=== PATIENT | female | born 1935 | race Native Hawaiian/Other Pacific Islander ===

== ENCOUNTER 2016-01-06 09:00 | Inpatient (IN) | payer OTHER | END 2016-02-06 08:00 | disposition still patient (30) | LOC: PAVB 09:00 | PROVIDERS: ADMIT Internal Medicine | DX: Z51.89 Encounter for other specified aftercare (principal) ==

== ENCOUNTER 2016-02-06 09:00 | Inpatient (IN) | payer OTHER | END 2016-03-08 10:53 | disposition still patient (30) | LOC: PAVB 09:00 | PROVIDERS: ADMIT Internal Medicine | DX: Z51.89 Encounter for other specified aftercare (principal) ==

== ENCOUNTER 2016-02-07 07:30 | Outpatient (CLI) | payer OTHER ==
[2016-02-07 08:08] LABS: PLATELET COUNT 127 K/uL (152-353)
[2016-02-07 08:37] LABS: POTASSIUM 4.3 mmol/L (3.6-5.2)
== END 2016-02-07 19:19 | disposition home or self-care (01) ==
LOC: LAB 07:30
PROVIDERS: Internal Medicine
DX: I10 Essential (primary) hypertension (principal); E11.9 Type 2 diabetes mellitus without complications
CPT/HCPCS: 36415; 80053; 83036; 85027

== ENCOUNTER 2016-03-08 11:40 | Inpatient (IN) | payer OTHER | END 2016-04-05 12:33 | disposition still patient (30) | LOC: PAVB 11:40 | PROVIDERS: ADMIT Internal Medicine | DX: Z51.89 Encounter for other specified aftercare (principal) ==

== ENCOUNTER 2016-04-05 12:43 | Inpatient (IN) | payer OTHER | END 2016-05-06 08:09 | disposition still patient (30) | LOC: PAVB 12:43 | PROVIDERS: ADMIT Internal Medicine | DX: Z51.89 Encounter for other specified aftercare (principal) ==

== ENCOUNTER 2016-05-06 09:04 | Inpatient (IN) | payer OTHER | END 2016-06-05 08:29 | disposition still patient (30) | LOC: PAVB 09:04 → PAVA 05-22 14:54 | PROVIDERS: ADMIT Internal Medicine | DX: Z51.89 Encounter for other specified aftercare (principal) ==

== ENCOUNTER 2016-05-09 05:35 | Outpatient (CLI) | payer OTHER | END 2016-05-09 06:35 | disposition home or self-care (01) | LOC: LAB 05:35 | DX: E11.9 Type 2 diabetes mellitus without complications (principal) | CPT/HCPCS: 83036 ==

== ENCOUNTER 2016-05-10 10:07 | Outpatient (CLI) | payer OTHER | END 2016-05-10 11:07 | disposition home or self-care (01) | LOC: RAD 10:07 | DX: M81.0 Age-related osteoporosis without current pathological fracture (principal) ==

== ENCOUNTER 2016-06-03 01:26 | Outpatient (CLI) | payer OTHER | END 2016-06-03 19:07 | disposition home or self-care (01) | LOC: LAB 01:26 | DX: Z16.24 Resistance to multiple antibiotics (principal) | CPT/HCPCS: 87081 ==

== ENCOUNTER 2016-06-05 08:45 | Inpatient (IN) | payer OTHER | END 2016-07-06 08:10 | disposition still patient (30) | LOC: PAVA 08:45 | PROVIDERS: ADMIT Internal Medicine | DX: Z51.89 Encounter for other specified aftercare (principal) ==

== ENCOUNTER 2016-07-06 08:22 | Inpatient (IN) | payer OTHER | END 2016-08-05 14:56 | disposition still patient (30) | LOC: PAVA 08:22 | PROVIDERS: ADMIT Internal Medicine | DX: Z51.89 Encounter for other specified aftercare (principal) ==

== ENCOUNTER 2016-08-05 15:06 | Inpatient (IN) | payer OTHER | END 2016-09-05 08:29 | disposition still patient (30) | LOC: PAVA 15:06 | PROVIDERS: ADMIT Internal Medicine | DX: Z51.89 Encounter for other specified aftercare (principal) ==

== ENCOUNTER 2016-08-07 06:35 | Outpatient (CLI) | payer OTHER ==
[2016-08-07 07:15] LABS: PLATELET COUNT 122 K/uL (152-353)
[2016-08-07 08:23] LABS: POTASSIUM 3.9 mmol/L (3.6-5.2)
== END 2016-08-07 07:40 | disposition home or self-care (01) ==
LOC: LAB 06:35
PROVIDERS: Internal Medicine
DX: E11.9 Type 2 diabetes mellitus without complications (principal); I10 Essential (primary) hypertension; E11.21 Type 2 diabetes mellitus with diabetic nephropathy
CPT/HCPCS: 80053; 83036; 85027

== ENCOUNTER 2016-09-05 09:07 | Inpatient (IN) | payer OTHER | END 2016-10-06 08:10 | disposition still patient (30) | LOC: PAVA 09:07 | PROVIDERS: ADMIT Internal Medicine | DX: Z51.89 Encounter for other specified aftercare (principal) ==

== ENCOUNTER 2016-10-06 08:25 | Inpatient (IN) | payer OTHER | END 2016-11-05 09:08 | disposition still patient (30) | LOC: PAVA 08:25 | PROVIDERS: ADMIT Internal Medicine | DX: Z51.89 Encounter for other specified aftercare (principal) ==

== ENCOUNTER 2016-11-05 09:20 | Inpatient (IN) | payer OTHER | END 2016-12-06 10:24 | disposition still patient (30) | LOC: PAVA 09:20 | PROVIDERS: ADMIT Internal Medicine ==

== ENCOUNTER 2016-11-06 11:44 | Outpatient (CLI) | payer OTHER | END 2016-11-06 12:45 | disposition home or self-care (01) | LOC: LAB 11:44 | DX: E11.9 Type 2 diabetes mellitus without complications (principal) | CPT/HCPCS: 83036 ==

== ENCOUNTER 2016-12-06 12:20 | Inpatient (IN) | payer OTHER | END 2017-01-05 08:12 | disposition still patient (30) | LOC: PAVA 12:20 | PROVIDERS: ADMIT Internal Medicine ==

== ENCOUNTER 2017-01-05 08:48 | Inpatient (IN) | payer OTHER | END 2017-02-05 08:27 | disposition still patient (30) | LOC: PAVA 08:48 | PROVIDERS: ADMIT Internal Medicine ==

== ENCOUNTER 2017-02-05 08:48 | Inpatient (IN) | payer OTHER | END 2017-03-08 08:30 | disposition still patient (30) | LOC: PAVA 08:48 | PROVIDERS: ADMIT Internal Medicine ==

== ENCOUNTER 2017-02-07 06:17 | Outpatient (CLI) | payer OTHER ==
[2017-02-07 08:29] LABS: POTASSIUM 4.3 mmol/L (3.6-5.2)
[2017-02-07 13:44] LABS: PLATELET COUNT 139 K/uL (152-353)
== END 2017-02-07 21:33 | disposition home or self-care (01) ==
LOC: LAB 06:17
PROVIDERS: Internal Medicine
DX: R73.09 Other abnormal glucose (principal)
CPT/HCPCS: 80053; 83036; 85027

== ENCOUNTER 2017-03-08 09:24 | Inpatient (IN) | payer OTHER | END 2017-04-05 08:07 | disposition still patient (30) | LOC: PAVA 09:24 | PROVIDERS: ADMIT Internal Medicine ==

== ENCOUNTER 2017-04-05 08:44 | Inpatient (IN) | payer OTHER | END 2017-05-06 08:00 | disposition still patient (30) | LOC: PAVA 08:44 | PROVIDERS: ADMIT Internal Medicine ==

== ENCOUNTER 2017-05-06 09:00 | Inpatient (IN) | payer OTHER | END 2017-06-05 08:10 | disposition still patient (30) | LOC: PAVA 09:00 | PROVIDERS: ADMIT Internal Medicine ==

== ENCOUNTER 2017-06-05 08:41 | Inpatient (IN) | payer OTHER | END 2017-07-06 08:20 | disposition still patient (30) | LOC: PAVA 08:41 | PROVIDERS: ADMIT Internal Medicine ==

== ENCOUNTER 2017-07-06 08:33 | Inpatient (IN) | payer OTHER | END 2017-08-05 14:14 | disposition still patient (30) | LOC: PAVA 08:33 | PROVIDERS: ADMIT Internal Medicine ==

== ENCOUNTER 2017-08-05 14:28 | Inpatient (IN) | payer OTHER | END 2017-09-05 08:00 | disposition still patient (30) | LOC: PAVA 14:28 | PROVIDERS: ADMIT Internal Medicine ==

== ENCOUNTER 2017-08-08 05:50 | Outpatient (CLI) | payer OTHER ==
[2017-08-08 06:29] LABS: PLATELET COUNT 137 K/uL (152-353)
[2017-08-08 07:10] LABS: POTASSIUM 4.1 mmol/L (3.6-5.2)
== END 2017-08-08 22:06 | disposition home or self-care (01) ==
LOC: LAB 05:50
PROVIDERS: Internal Medicine
DX: I10 Essential (primary) hypertension (principal); E11.9 Type 2 diabetes mellitus without complications
CPT/HCPCS: 80053; 83036; 85027

== ENCOUNTER 2017-09-05 09:00 | Inpatient (IN) | payer OTHER | END 2017-10-06 09:56 | disposition still patient (30) | LOC: PAVA 09:00 | PROVIDERS: ADMIT Internal Medicine ==

== ENCOUNTER 2017-10-06 10:06 | Inpatient (IN) | payer OTHER | END 2017-11-05 08:39 | disposition still patient (30) | LOC: PAVA 10:06 | PROVIDERS: ADMIT Internal Medicine ==

== ENCOUNTER 2017-11-05 06:36 | Outpatient (CLI) | payer OTHER | END 2017-11-05 19:50 | disposition home or self-care (01) | LOC: LAB 06:36 | DX: E11.9 Type 2 diabetes mellitus without complications (principal) | CPT/HCPCS: 83036 ==

== ENCOUNTER 2017-11-05 08:52 | Inpatient (IN) | payer OTHER | END 2017-12-06 08:10 | disposition still patient (30) | LOC: PAVA 08:52 | PROVIDERS: ADMIT Internal Medicine ==

== ENCOUNTER 2017-11-30 18:30 | Outpatient (CLI) | payer OTHER | END 2017-11-30 19:35 | disposition home or self-care (01) | LOC: LAB 18:30 | DX: G31.84 Mild cognitive impairment of uncertain or unknown etiology (principal) | CPT/HCPCS: 81000 ==

== ENCOUNTER 2017-12-03 17:56 | Outpatient (CLI) | payer OTHER | END 2017-12-03 20:06 | disposition home or self-care (01) | LOC: RAD 17:56 | DX: M54.5 Low back pain (principal) ==

== ENCOUNTER 2017-12-06 08:22 | Inpatient (IN) | payer OTHER | END 2018-01-05 08:04 | disposition still patient (30) | LOC: PAVA 08:22 | PROVIDERS: ADMIT Internal Medicine ==

== ENCOUNTER 2017-12-11 14:21 | Outpatient (CLI) | payer OTHER | END 2017-12-11 22:21 | disposition home or self-care (01) | LOC: RAD 14:21 | DX: M79.661 Pain in right lower leg (principal) ==

== ENCOUNTER 2018-01-05 08:15 | Inpatient (IN) | payer OTHER | END 2018-02-05 10:20 | disposition still patient (30) | LOC: PAVA 08:15 | PROVIDERS: ADMIT Internal Medicine ==

== ENCOUNTER 2018-02-05 10:34 | Inpatient (IN) | payer OTHER | END 2018-03-08 14:15 | disposition still patient (30) | LOC: PAVA 10:34 | PROVIDERS: ADMIT Internal Medicine ==

== ENCOUNTER 2018-02-11 06:37 | Outpatient (CLI) | payer OTHER ==
[2018-02-11 08:37] LABS: PLATELET COUNT 148 K/uL (152-353)
[2018-02-11 08:49] LABS: POTASSIUM 3.8 mmol/L (3.6-5.2)
== END 2018-02-11 20:19 | disposition home or self-care (01) ==
LOC: LAB 06:37
PROVIDERS: Internal Medicine
DX: E11.40 Type 2 diabetes mellitus with diabetic neuropathy, unspecified (principal); I10 Essential (primary) hypertension
CPT/HCPCS: 80053; 83036; 85027

== ENCOUNTER 2018-02-26 09:19 | Outpatient (CLI) | payer OTHER | END 2018-02-26 21:02 | disposition home or self-care (01) | LOC: RAD 09:19 | DX: R10.9 Unspecified abdominal pain (principal); R14.0 Abdominal distension (gaseous) ==

== ENCOUNTER 2018-03-08 14:32 | Inpatient (IN) | payer OTHER | END 2018-04-05 09:13 | disposition still patient (30) | LOC: PAVA 14:32 | PROVIDERS: ADMIT Internal Medicine ==

== ENCOUNTER 2018-04-05 09:41 | Inpatient (IN) | payer OTHER | END 2018-05-06 07:54 | disposition still patient (30) | LOC: PAVA 09:41 | PROVIDERS: ADMIT Internal Medicine ==

== ENCOUNTER 2018-05-06 08:27 | Inpatient (IN) | payer OTHER | END 2018-06-05 09:38 | disposition still patient (30) | LOC: PAVA 08:27 | PROVIDERS: ADMIT Internal Medicine ==

== ENCOUNTER 2018-05-08 15:56 | Outpatient (CLI) | payer OTHER | END 2018-05-08 20:09 | disposition home or self-care (01) | LOC: LAB 15:56 | DX: R53.83 Other fatigue (principal) | CPT/HCPCS: 36415; 84443 ==

== ENCOUNTER 2018-05-09 05:31 | Outpatient (CLI) | payer OTHER | END 2018-05-09 19:09 | disposition home or self-care (01) | LOC: LAB 05:31 | DX: E11.9 Type 2 diabetes mellitus without complications (principal); I10 Essential (primary) hypertension; M19.91 Primary osteoarthritis, unspecified site; R53.83 Other fatigue | CPT/HCPCS: 83036 ==

== ENCOUNTER 2018-06-05 10:36 | Inpatient (IN) | payer OTHER | END 2018-07-06 08:12 | disposition still patient (30) | LOC: PAVA 10:36 | PROVIDERS: ADMIT Internal Medicine | DX: Z51.89 Encounter for other specified aftercare (principal) ==

== ENCOUNTER 2018-07-06 08:22 | Inpatient (IN) | payer OTHER | END 2018-08-05 08:26 | disposition still patient (30) | LOC: PAVA 08:22 | PROVIDERS: ADMIT Internal Medicine ==

== ENCOUNTER 2018-08-05 03:48 | Outpatient (CLI) | payer OTHER ==
[2018-08-05 05:34] LABS: PLATELET COUNT 130 K/uL (152-353)
[2018-08-05 06:30] LABS: POTASSIUM 3.5 mmol/L (3.6-5.2)
== END 2018-08-05 23:31 | disposition home or self-care (01) ==
LOC: LAB 03:48
PROVIDERS: Internal Medicine
DX: I10 Essential (primary) hypertension (principal); E11.9 Type 2 diabetes mellitus without complications
CPT/HCPCS: 36415; 80053; 83036; 85027

== ENCOUNTER 2018-08-05 08:53 | Inpatient (IN) | payer OTHER | END 2018-09-05 09:06 | disposition still patient (30) | LOC: PAVA 08:53 | PROVIDERS: ADMIT Internal Medicine ==

== ENCOUNTER 2018-09-05 09:43 | Inpatient (IN) | payer OTHER | END 2018-10-06 15:57 | disposition still patient (30) | LOC: PAVA 09:43 | PROVIDERS: ADMIT Internal Medicine ==

== ENCOUNTER 2018-10-06 16:16 | Inpatient (IN) | payer OTHER | END 2018-11-05 08:04 | disposition still patient (30) | LOC: PAVA 16:16 | PROVIDERS: ADMIT Internal Medicine ==

== ENCOUNTER 2018-11-05 08:44 | Inpatient (IN) | payer OTHER | END 2018-12-06 08:51 | disposition still patient (30) | LOC: PAVA 08:44 | PROVIDERS: ADMIT Internal Medicine ==

== ENCOUNTER 2018-11-06 06:12 | Outpatient (CLI) | payer OTHER | END 2018-11-06 23:47 | disposition home or self-care (01) | LOC: LAB 06:12 | DX: E11.9 Type 2 diabetes mellitus without complications (principal) | CPT/HCPCS: 83036 ==

== ENCOUNTER 2018-12-06 10:50 | Inpatient (IN) | payer OTHER | END 2019-01-05 08:00 | disposition still patient (30) | LOC: PAVA 10:50 | PROVIDERS: ADMIT Internal Medicine ==

== ENCOUNTER 2019-01-05 08:30 | Inpatient (IN) | payer OTHER | END 2019-02-05 07:59 | disposition still patient (30) | LOC: PAVA 08:30 | PROVIDERS: ADMIT Internal Medicine ==

== ENCOUNTER 2019-02-05 08:12 | Inpatient (IN) | payer OTHER | END 2019-03-08 09:30 | disposition still patient (30) | LOC: PAVA 08:12 | PROVIDERS: ADMIT Internal Medicine ==

== ENCOUNTER 2019-02-07 03:14 | Outpatient (CLI) | payer OTHER ==
[2019-02-07 04:23] LABS: PLATELET COUNT 140 K/uL (152-353)
[2019-02-07 04:51] LABS: POTASSIUM 3.8 mmol/L (3.6-5.2)
== END 2019-02-07 19:03 | disposition home or self-care (01) ==
LOC: LAB 03:14
PROVIDERS: Internal Medicine
DX: I10 Essential (primary) hypertension (principal); E11.9 Type 2 diabetes mellitus without complications
CPT/HCPCS: 80053; 83036; 85027

== ENCOUNTER 2019-03-08 09:41 | Inpatient (IN) | payer OTHER | END 2019-04-06 12:44 | disposition still patient (30) | LOC: PAVA 09:41 | PROVIDERS: ADMIT Internal Medicine ==

== ENCOUNTER 2019-03-25 13:34 | Outpatient (CLI) | payer OTHER | END 2019-03-25 22:01 | disposition home or self-care (01) | LOC: LAB 13:34 | DX: N39.0 Urinary tract infection, site not specified (principal) | CPT/HCPCS: 81000; 87077; 87086; 87088; 87186 ==

== ENCOUNTER 2019-04-06 12:56 | Inpatient (IN) | payer OTHER | END 2019-05-07 08:57 | disposition still patient (30) | LOC: PAVA 12:56 | PROVIDERS: ADMIT Internal Medicine ==

== ENCOUNTER 2019-05-07 09:17 | Inpatient (IN) | payer OTHER | END 2019-06-06 08:02 | disposition still patient (30) | LOC: PAVA 09:17 | PROVIDERS: ADMIT Internal Medicine ==

== ENCOUNTER 2019-05-09 06:38 | Outpatient (CLI) | payer OTHER | END 2019-05-09 23:30 | disposition home or self-care (01) | LOC: LAB 06:38 | DX: E11.40 Type 2 diabetes mellitus with diabetic neuropathy, unspecified (principal) | CPT/HCPCS: 83036 ==

== ENCOUNTER 2019-05-16 10:58 | Outpatient (CLI) | payer OTHER | END 2019-05-16 20:29 | disposition home or self-care (01) | LOC: LAB 10:58 | DX: L72.3 Sebaceous cyst (principal) | CPT/HCPCS: 87070; 87077; 87205 ==

== ENCOUNTER 2019-06-06 08:31 | Inpatient (IN) | payer OTHER | END 2019-07-07 08:10 | disposition still patient (30) | LOC: PAVA 08:31 | PROVIDERS: ADMIT Internal Medicine | CPT/HCPCS: 87635; U0002 ==

== ENCOUNTER 2019-06-13 11:14 | Outpatient (CLI) | payer OTHER ==
[2019-06-13 12:05] LABS: POTASSIUM 4.4 mmol/L (3.6-5.2)
== END 2019-06-13 22:06 | disposition home or self-care (01) ==
LOC: LAB 11:14
PROVIDERS: Nurse Practitioner
DX: U07.1 COVID-19 (principal)
CPT/HCPCS: 80053

== ENCOUNTER 2019-07-07 08:22 | Inpatient (IN) | payer OTHER | END 2019-08-06 08:25 | disposition still patient (30) | LOC: PAVA 08:22 | PROVIDERS: ADMIT Internal Medicine | CPT/HCPCS: 87635; U0002 ==

== ENCOUNTER 2019-07-28 09:06 | Emergency (ER) | payer OTHER ==
[2019-07-28 09:06] VITALS: TEMP 98
[2019-07-28 10:13] LABS: PLATELET COUNT 210 K/uL (152-353)
[2019-07-28 10:22] LABS: POTASSIUM 3.7 mmol/L (3.6-5.2)
[2019-07-28 11:00] VITALS: BP 120/55
== END 2019-07-28 11:28 ==
LOC: ED 09:14
PROVIDERS: Family Medicine
DX: N39.0 Urinary tract infection, site not specified (principal)
CPT/HCPCS: 36415; 80053; 81000; 83605; 85027; 99283

== ENCOUNTER 2019-07-28 14:33 | Outpatient (CLI) | payer OTHER | END 2019-07-28 19:32 | disposition home or self-care (01) | LOC: US 14:33 → RESP 14:33 | DX: R93.1 Abnormal findings on diagnostic imaging of heart and coronary circulation (principal); R41.82 Altered mental status, unspecified; I10 Essential (primary) hypertension | CPT/HCPCS: 93225 ==

== ENCOUNTER 2019-07-29 05:23 | Outpatient (CLI) | payer OTHER | END 2019-07-29 21:22 | disposition home or self-care (01) | LOC: RESP 05:23 → LAB 05:23 | DX: R41.82 Altered mental status, unspecified (principal) | CPT/HCPCS: 82607; 82746; 82747 ==

== ENCOUNTER 2019-08-06 08:49 | Inpatient (IN) | payer OTHER | END 2019-09-06 08:22 | disposition still patient (30) | LOC: PAVA 08:49 | PROVIDERS: ADMIT Internal Medicine ==

== ENCOUNTER 2019-08-08 05:55 | Outpatient (CLI) | payer OTHER ==
[2019-08-08 08:19] LABS: PLATELET COUNT 165 K/uL (152-353)
[2019-08-08 08:28] LABS: POTASSIUM 4.2 mmol/L (3.6-5.2)
== END 2019-08-08 19:32 | disposition home or self-care (01) ==
LOC: LAB 05:55
PROVIDERS: Internal Medicine
DX: D64.89 Other specified anemias (principal); I10 Essential (primary) hypertension; E11.9 Type 2 diabetes mellitus without complications
CPT/HCPCS: 80053; 82272; 83036; 85027

== ENCOUNTER 2019-09-06 08:49 | Inpatient (IN) | payer OTHER | END 2019-10-07 10:39 | disposition still patient (30) | LOC: PAVA 08:49 | PROVIDERS: ADMIT Internal Medicine ==

== ENCOUNTER 2019-09-08 07:25 | Outpatient (CLI) | payer OTHER | END 2019-09-08 22:34 | disposition home or self-care (01) | LOC: LAB 07:25 | DX: E83.51 Hypocalcemia (principal) | CPT/HCPCS: 82306; 82310 ==

== ENCOUNTER 2019-10-07 11:17 | Inpatient (IN) | payer OTHER | END 2019-11-06 09:27 | disposition still patient (30) | LOC: PAVA 11:17 | PROVIDERS: ADMIT Internal Medicine ==

== ENCOUNTER 2019-11-06 10:45 | Inpatient (IN) | payer OTHER | END 2019-12-07 08:00 | disposition still patient (30) | LOC: PAVA 10:45 | PROVIDERS: ADMIT Internal Medicine ==

== ENCOUNTER 2019-11-07 07:42 | Outpatient (CLI) | payer OTHER | END 2019-11-08 03:32 | disposition home or self-care (01) | LOC: LAB 07:42 | DX: E11.40 Type 2 diabetes mellitus with diabetic neuropathy, unspecified (principal) | CPT/HCPCS: 83036 ==

== ENCOUNTER 2019-11-24 15:21 | Outpatient (CLI) | payer OTHER ==
[2019-11-24 17:14] LABS: PLATELET COUNT 60 K/uL (152-353)
== END 2019-11-24 22:36 | disposition home or self-care (01) ==
LOC: LAB 15:21
PROVIDERS: Internal Medicine
DX: D64.89 Other specified anemias (principal)
CPT/HCPCS: 85027

== ENCOUNTER 2019-12-07 09:00 | Inpatient (IN) | payer OTHER ==
[2019-12-10] MEDS ORDERED: BREO ELLIPTA 101 INH PO (12:31)
[2019-12-10] MEDS ORDERED: DOCU100C10 PO (12:33)
[2019-12-10] MEDS ORDERED: DULO30CA PO (12:34)
[2019-12-10] MEDS ORDERED: B-12 COMPL1000 MCG/M IM (12:35)
[2019-12-10] MEDS ORDERED: ALEN70TA19 PO (12:36)
[2019-12-10] MEDS ORDERED: FURO40TA93 PO (12:37)
[2019-12-10] MEDS ORDERED: MELATONIN3 MG PO (12:38)
[2019-12-10] MEDS ORDERED: NAMZARIC 28-101 CAP PO (12:39)
[2019-12-10] MEDS ORDERED: MULTI VITAMIN1 TAB PO (12:39)
[2019-12-10] MEDS ORDERED: POTASSIUM CHLO20 ME1 PO (12:40)
[2019-12-10] MEDS ORDERED: OMEP40CA PO (12:41)
[2019-12-10] MEDS ORDERED: VITAMIN D32000 UNIT PO (12:41)
[2019-12-10] MEDS ORDERED: CETI10TA PO (12:42)
[2019-12-10] MEDS ORDERED: BENEPROTEIN6 GM PO (12:42)
[2019-12-10] MEDS ORDERED: CALCIUM + D600 MG PO (12:47)
[2019-12-10] MEDS ORDERED: METF500T PO (12:49)
[2019-12-10] MEDS ORDERED: LYRICA150 MG PO (12:51)
[2019-12-10] MEDS ORDERED: TRAMADOL HYDROC50 MG PO (12:52)
[2019-12-10] MEDS ORDERED: TYLENOL325 MG PO ×2 (12:53)
== END 2020-01-06 08:34 | disposition still patient (30) ==
LOC: PAVA 09:00
PROVIDERS: ADMIT Internal Medicine; ATTEND Internal Medicine

== ENCOUNTER 2019-12-09 09:14 | Outpatient (CLI) | payer OTHER ==
[2019-12-09 11:59] LABS: PLATELET COUNT 177 K/uL (152-353)
[2019-12-10] MEDS ORDERED: BREO ELLIPTA 101 INH PO (12:31)
[2019-12-10] MEDS ORDERED: DOCU100C10 PO (12:33)
[2019-12-10] MEDS ORDERED: DULO30CA PO (12:34)
[2019-12-10] MEDS ORDERED: B-12 COMPL1000 MCG/M IM (12:35)
[2019-12-10] MEDS ORDERED: ALEN70TA19 PO (12:36)
[2019-12-10] MEDS ORDERED: FURO40TA93 PO (12:37)
[2019-12-10] MEDS ORDERED: MELATONIN3 MG PO (12:38)
[2019-12-10] MEDS ORDERED: NAMZARIC 28-101 CAP PO (12:39)
[2019-12-10] MEDS ORDERED: MULTI VITAMIN1 TAB PO (12:39)
[2019-12-10] MEDS ORDERED: POTASSIUM CHLO20 ME1 PO (12:40)
[2019-12-10] MEDS ORDERED: OMEP40CA PO (12:41)
[2019-12-10] MEDS ORDERED: VITAMIN D32000 UNIT PO (12:41)
[2019-12-10] MEDS ORDERED: BENEPROTEIN6 GM PO (12:42)
[2019-12-10] MEDS ORDERED: CETI10TA PO (12:42)
[2019-12-10] MEDS ORDERED: CALCIUM + D600 MG PO (12:47)
[2019-12-10] MEDS ORDERED: METF500T PO (12:49)
[2019-12-10] MEDS ORDERED: LYRICA150 MG PO (12:51)
[2019-12-10] MEDS ORDERED: TRAMADOL HYDROC50 MG PO (12:52)
[2019-12-10] MEDS ORDERED: TYLENOL325 MG PO ×2 (12:53)
== END 2019-12-09 23:30 | disposition home or self-care (01) ==
LOC: LAB 09:14
PROVIDERS: Internal Medicine
DX: D64.89 Other specified anemias (principal); Z79.899 Other long term (current) drug therapy; E87.6 Hypokalemia; E55.9 Vitamin D deficiency, unspecified
CPT/HCPCS: 82306; 82310; 85027

== ENCOUNTER 2019-12-10 11:13 | Inpatient (IN) | payer OTHER ==
[2019-12-10] VITALS (12 sets, daily range): BP systolic 114–143; BP diastolic 46–87; TEMP 97.9–98.5; Ht 157.5 cm; Wt 66.7 kg
[~2019-12-10] VITALS: Ht 157.5 cm; Wt 66.7 kg
[2019-12-10] MEDS ORDERED: BREO ELLIPTA 101 INH PO (12:31)
[2019-12-10] MEDS ORDERED: DOCU100C10 PO (12:33)
[2019-12-10] MEDS ORDERED: DULO30CA PO (12:34)
[2019-12-10 12:35] LABS: PLATELET COUNT 164 K/uL (152-353)
[2019-12-10] MEDS ORDERED: B-12 COMPL1000 MCG/M IM (12:35)
[2019-12-10] MEDS ORDERED: ALEN70TA19 PO (12:36)
[2019-12-10] MEDS ORDERED: FURO40TA93 PO (12:37)
[2019-12-10] MEDS ORDERED: MELATONIN3 MG PO (12:38)
[2019-12-10] MEDS ORDERED: MULTI VITAMIN1 TAB PO (12:39)
[2019-12-10] MEDS ORDERED: NAMZARIC 28-101 CAP PO (12:39)
[2019-12-10] MEDS ORDERED: POTASSIUM CHLO20 ME1 PO (12:40)
[2019-12-10] MEDS ORDERED: VITAMIN D32000 UNIT PO (12:41)
[2019-12-10] MEDS ORDERED: OMEP40CA PO (12:41)
[2019-12-10] MEDS ORDERED: CETI10TA PO (12:42)
[2019-12-10] MEDS ORDERED: BENEPROTEIN6 GM PO (12:42)
[2019-12-10] MEDS ORDERED: CALCIUM + D600 MG PO (12:47)
[2019-12-10] MEDS ORDERED: METF500T PO (12:49)
[2019-12-10] MEDS ORDERED: LYRICA150 MG PO (12:51)
[2019-12-10] MEDS ORDERED: TRAMADOL HYDROC50 MG PO (12:52)
[2019-12-10] MEDS ORDERED: TYLENOL325 MG PO ×2 (12:53)
[2019-12-11] VITALS (21 sets, daily range): BP systolic 112–159; BP diastolic 60–84; TEMP 97.7–98.3
[2019-12-11 14:45] LABS: PLATELET COUNT 162 K/uL (152-353)
[2019-12-11 14:50] LABS: POTASSIUM 3.9 mmol/L (3.6-5.2)
== END 2019-12-11 15:58 | disposition home or self-care (01) | DRG 812 ==
LOC: MED/SURG 11:13
PROVIDERS: ADMIT Internal Medicine Endocrinology, Diabetes & Metabolism
PROC: 30233N1 Transfusion of Nonautologous Red Blood Cells into Peripheral Vein, Percutaneous Approach (ICD-10-PCS; principal; 2019-12-10)
PROC: 30233N1 Transfusion of Nonautologous Red Blood Cells into Peripheral Vein, Percutaneous Approach (ICD-10-PCS; 2019-12-11)
DX: D64.89 Other specified anemias (principal); I10 Essential (primary) hypertension; E11.40 Type 2 diabetes mellitus with diabetic neuropathy, unspecified; K21.9 Gastro-esophageal reflux disease without esophagitis; F03.90 Unspecified dementia, unspecified severity, without behavioral disturbance, psychotic disturbance, mood disturbance, and anxiety; G89.4 Chronic pain syndrome; M81.8 Other osteoporosis without current pathological fracture
CPT/HCPCS: 80048; 85027; 86850; 86900; 86901; 86922; J1940; P9016

== ENCOUNTER 2020-01-06 08:57 | Inpatient (IN) | payer OTHER ==
[~2020-01-06 08:57] MED LIST: ALEN70TA19 PO; B-12 COMPL1000 MCG/M IM; BENEPROTEIN6 GM PO; BREO ELLIPTA 101 INH PO; CALCIUM + D600 MG PO; CETI10TA PO; DOCU100C10 PO; DULO30CA PO; FURO40TA93 PO; LYRICA150 MG PO; MELATONIN3 MG PO; METF500T PO; MULTI VITAMIN1 TAB PO; NAMZARIC 28-101 CAP PO; OMEP40CA PO; POTASSIUM CHLO20 ME1 PO; TRAMADOL HYDROC50 MG PO; TYLENOL325 MG PO; VITAMIN D32000 UNIT PO
== END 2020-02-06 08:28 | disposition still patient (30) ==
LOC: PAVA 08:57
PROVIDERS: ADMIT Internal Medicine; ATTEND Internal Medicine

== ENCOUNTER 2020-02-06 08:43 | Inpatient (IN) | payer OTHER | END 2020-03-08 13:10 | disposition still patient (30) | LOC: PAVA 08:43 | PROVIDERS: ADMIT Internal Medicine; ATTEND Internal Medicine | CPT/HCPCS: 86850; 86900; 86901; 86922 ==

== ENCOUNTER 2020-02-09 08:12 | Outpatient (CLI) | payer OTHER ==
[2020-02-09 08:29] LABS: PLATELET COUNT 151 K/uL (152-353)
[2020-02-09 08:41] LABS: POTASSIUM 4.2 mmol/L (3.6-5.2)
== END 2020-02-09 21:06 | disposition home or self-care (01) ==
LOC: LAB 08:12
PROVIDERS: ATTEND Internal Medicine
DX: I10 Essential (primary) hypertension (principal); D64.89 Other specified anemias; J44.9 Chronic obstructive pulmonary disease, unspecified; E11.40 Type 2 diabetes mellitus with diabetic neuropathy, unspecified
CPT/HCPCS: 80053; 83036; 85027

== ENCOUNTER 2020-02-10 12:45 | Inpatient (IN) | payer OTHER ==
[~2020-02-10] VITALS: Ht 152.4 cm; Wt 66.7 kg
[2020-02-10] VITALS (13 sets, daily range): BP systolic 83–155; BP diastolic 47–82; TEMP 97.7–99.6; Ht 152.4 cm; Wt 66.7 kg
[2020-02-11] VITALS (13 sets, daily range): BP systolic 111–166; BP diastolic 61–76; TEMP 97.1–98.4
== END 2020-02-11 18:51 | DRG 812 ==
LOC: MED/SURG 12:45
PROVIDERS: ADMIT Internal Medicine; ATTEND Internal Medicine
PROC: 30233N1 Transfusion of Nonautologous Red Blood Cells into Peripheral Vein, Percutaneous Approach (ICD-10-PCS; principal; 2020-02-10)
PROC: 30233N1 Transfusion of Nonautologous Red Blood Cells into Peripheral Vein, Percutaneous Approach (ICD-10-PCS; 2020-02-11)
DX: D64.89 Other specified anemias (principal); I10 Essential (primary) hypertension; E11.40 Type 2 diabetes mellitus with diabetic neuropathy, unspecified; K21.9 Gastro-esophageal reflux disease without esophagitis; F03.90 Unspecified dementia, unspecified severity, without behavioral disturbance, psychotic disturbance, mood disturbance, and anxiety; G89.4 Chronic pain syndrome; M81.8 Other osteoporosis without current pathological fracture; Z79.899 Other long term (current) drug therapy; E87.6 Hypokalemia; E55.9 Vitamin D deficiency, unspecified; J44.9 Chronic obstructive pulmonary disease, unspecified
CPT/HCPCS: 36415; 80053; 83036; 85014; 85018; 85027; 86850; 86900; 86901; 86922; J1940; P9016

== ENCOUNTER → 2020-02-11 | Outpatient (CLI) | payer OTHER | LOC: LAB 23:05 | PROVIDERS: ATTEND Internal Medicine | DX: D64.89 Other specified anemias (principal) | CPT/HCPCS: 85014; 85018 ==

== ENCOUNTER 2020-03-08 14:05 | Inpatient (IN) | payer OTHER | END 2020-04-05 04:30 | disposition E | LOC: PAVA 14:05 | PROVIDERS: ADMIT Internal Medicine; ATTEND Internal Medicine ==

== ENCOUNTER 2020-04-01 01:26 | Inpatient (IN) | payer OTHER ==
[2020-04-01] VITALS (46 sets, daily range): BP systolic 60–128; BP diastolic 38–71; TEMP 97.9–99.2; Ht 152.4 cm; Wt 71.7 kg
[~2020-04-01] VITALS: Ht 152.4 cm; Wt 71.7 kg
[2020-04-01 02:40] LABS: PLATELET COUNT 147 K/uL (152-353)
[2020-04-01 02:46] LABS: POTASSIUM 4.3 mmol/L (3.6-5.2)
[2020-04-01 02:54] LABS: PARTIAL THROMBOPLASTIN TIME 19.3 SECONDS (24.5-33.6)
[2020-04-01 08:33] LABS: POTASSIUM 3.9 mmol/L (3.6-5.2)
--- NOTE | 2020-04-01 12:09 | NUR ---
PT BP BY MACHINE NOTED TO BE 89/61. DR. ELLIOTT NOTIFIED. MANUAL BP OBTAINED NOTED TO BE 78/44. DR. ELLIOTT NOTIFIED. REC'D ORDERS TO BOLUS PT WITH ONE LITER NS. PT ALERT AND ORIENTED AT THIS TIME. WILL CON'T TO MONITOR PT.
--- NOTE | 2020-04-01 14:19 | NUR ---
PT BP CON'T TO BE LOW AT 80/42 MANUALLY. PT NOTED TO HAVE TEMP OF 101.[address] ELLIOTT NOTIFIED. CONFIRMED ALBUMIN IS IN AND LEVAQUIN IS GOING. REC'D ORDERS TO BOLUS PT WITH AN OTHER LITER OF NS AND GIVE TYLENOL 1000MG IVPB Q6HRS PRN FEVER/PAIN.
--- NOTE | 2020-04-01 15:15 | NUR ---
PT BP REASSESSED MANUALLY AT THIS TIME BY THIS NURSE 60/40. PT'S BP REASSESSED BY KATTY MCCARTHY RN MANUALLY 60/40.
--- NOTE | 2020-04-01 15:20 | NUR ---
22G IV STARTED TO LEFT FOREARM X1 STICK AT THIS TIME. TYLENOL MOVED TO LEFT FOREARM IV AT THIS TIME. BOLUS CON'T TO GO TO 22G IV IN RAC.
--- NOTE | 2020-04-01 15:30 | NUR ---
DR. ELLIOTT NOTIFIED BY KATTY MCCARTHY RN OF PT'S CURRENT BP. WAITING FOR NEW ORDERS AT THIS TIME.
--- NOTE | 2020-04-01 15:45 | NUR ---
DR. ELLIOTT AT PT'S BEDSIDE AT THIS TIME. REC'D STAT ORDER FOR SOLUCORTEF 100MG IV PUSH AND MOVE PT TO ICU.
--- NOTE | 2020-04-01 16:08 | NUR ---
PT TRANSFERED TO ICU FROM [place] VIA BED PER MD ORDERS. PT PLACED IN ICU 1. PT ARRIVED IN TRENDELENBERG WITH NS BOLUS INFUSING VIA PUMP INTO RT AC. PT ALSO HAS NS AT 100ML INFUSING VIA PUMP INTO 22G INTO LT FA ALONG WITH LEVAQUIN 500MG PIGGY BACKED INTO NS.
--- NOTE | 2020-04-01 16:08 | NUR ---
PT MOVED [facility] ICU BED ONE AT THIS TIME PER DR. ELLIOTT ORDERS. PT BP AT THIS TIME 64/38 MANUAL.
--- NOTE | 2020-04-01 16:15 | NUR ---
DR ELLIOTT INFORMED PT HERE AND BP ON ARRIVAL TO ICU WAS 64/38. NEW ORDERS REC'D TO START LEVOPHED PER PROTOCOL.
--- NOTE | 2020-04-01 16:32 | NUR ---
REC'D CALL FROM BRYAN IN LAB. PT HAS POSITIVE BLOOD CULTURE. ATTEMPTED TO CALL DR. ELLIOTT NO ANSWER AT THIS TIME. WILL CON'T TO TRY TO CALL.
--- NOTE | 2020-04-01 16:43 | NUR ---
LEVOPHED INCREASED TO 10MCG AT THIS TIME FOR BP OF 78/45 HEARTRATE OF 92.
--- NOTE | 2020-04-01 16:53 | NUR ---
ATTEMPTED TO CALL DR. ELLIOTT AGAIN AT THIS TIME TO REPORT POSITIVE BLOOD CULTURE. NO ANSWER WILL CON'T TO CALL.
--- NOTE | 2020-04-01 17:15 | NUR ---
LEVOPHED INCREASED TO 12MCG D/T BP OF 92/53 HR 100
--- NOTE | 2020-04-01 18:15 | NUR ---
DR ELLIOTT AT BS AT THIS TIME. NEW ORDERS REC'D TO DECREASED NS TO 100ML/HR AT TIS TIME. IVFS DECREASED TO 100 PER MD ORDERS
--- NOTE | 2020-04-01 19:08 | NUR ---
LIZZIE OF LAB CALLED AND REPORTED SECOND BLOOD CULTURE WAS POSITIVE, WILL FORWARD RESULTS TO ICU DEPT.
--- NOTE | 2020-04-01 20:25 | NUR ---
DECREASED LEVOPHED DRIP TO 10MCG/MIN, WILL MONITOR B/P AND OTHER VITALS CLOSELY.
--- NOTE | 2020-04-01 22:03 | NUR ---
RESTING WITH EYES CLOSED, NO S/S OF PAIN OR DISTRESS NOTED, VITALS BEING MONITORED AND ARE STABLE, IV SITES INTACT, ALCAZAR PATENT, RESP RATE NONLABORED, REMAINS ON LEVOPHED DRIP WITH B/P OF 115/60, WILL MONITOR, RAILS UP, BED IN LOW POSITION, CALL LIGHT IN REACH.
[2020-04-02] VITALS (85 sets, daily range): BP systolic 16–145; BP diastolic 44–81; TEMP 97.5–98.7
--- NOTE | 2020-04-02 00:15 | NUR ---
CONTINUES TO REST WITH EYES CLOSED WITH NO S/S OF PAIN OR DISTRESS NOTED, IV SITES INTACT, ALCAZAR PATENT, VITALS BEING MONITORED AND REMAIN STABLE, B/P AT CURRENT TIME IS 128/71 PULSE RATE 88, RESP RATE NORMAL NONLABORED. WILL MONITOR CLOSELY, RAILS UP X3, BED IN LOW POSITION, FEET ELEVATED ON PILLOW.
--- NOTE | 2020-04-02 02:00 | NUR ---
RESTING WITH EYES CLOSED WITH NO S/S OF PAIN OR DISTRESS NOTED, AROUSES TO STAFF AT BEDSIDE AND DENIES ANY PROBLEMS/PAIN, RESP RATE 12 NONLABORED, O2 VIA NC WITH SAT OF 98-99%, VITALS BEING MONITORED AND CURRENT B/P 126/65 REMAINS ON LEVOPHED DRIP AT 8MCG/MIN, HEALTH INFORMATION CLERK IN USE, 16F ALCAZAR PATENT DRAINING TO BEDSIDE, IV SITES INTACT TO R AC AND L FA WITH NS AT 30ML/HR AND LEVOPHED DRIP ONGOING. REPOSITIONED IN BED, FEET ELEVATED ON PILLOW, WILL MONITOR, RAILS UP, BED IN LOW POSITION, CALL LIGHT IN REACH.
--- NOTE | 2020-04-02 04:08 | NUR ---
PT OPENS EYES TO STAFF AT BEDSIDE, NO S/S OF PAIN OR DISTRESS NOTED AND DENIES ANY PROBLEMS OR NEEDS, TALKATIVE WITH STAFF, 22G IV SITES INTACT TO R AC AND L FA WITH LEVOPHED DRIP ONGOING AT 6MCG/MIN LAST B/P AT 0400 124/64 ALSO NS INFUSING AT 30ML/HR, ALCAZAR PATENT DRAINING TO BEDSIDE, COLORIST PHOTOGRAPHY IN USE WITH REGULAR RATE IN 80s, PULLED UP IN BED AND REPOSITIONED TO R SIDE WITH FEET AND HANDS ELEVATED ON PILLOWS, HOB ELEVATED, WILL MONITOR CLOSELY, RAILS UP X3, BED IN LOW POSITION.
--- NOTE | 2020-04-02 04:41 | NUR ---
LAB AT BEDSIDE FOR BLOOD DRAW FOR AM LABS. NAD NOTED WITH PATIENT AT THIS TIME.
[2020-04-02 05:24] LABS: PLATELET COUNT 75 K/uL (152-353)
[2020-04-02 05:39] LABS: POTASSIUM 3.7 mmol/L (3.6-5.2)
--- NOTE | 2020-04-02 06:18 | NUR ---
3 PILLOWS AND 1 BLANKET ON PATIENT'S BED WHILE OBTAINING DAILY WEIGHT THIS AM
--- NOTE | 2020-04-02 06:42 | NUR ---
DECREASED LEVOPHED DRIP TO 4MCG/MIN, B/P REMAINS STABLE, WILL MONITOR CLOSELY.
--- NOTE | 2020-04-02 06:56 | NUR ---
RESTING WITH EYES CLOSED, NO S/S OF PAIN OR DISTRESS NOTED, VITALS BEING MONITORED AND ARE STABLE, WILL MONITOR CLOSELY, RAILS UP, BED IN LOW POSITION.
--- NOTE | 2020-04-02 07:30 | NUR ---
IS HERE ROUNDING ON PATIENT. NEW ORDERS GIVEN FOR A REPEAT TROPONIN AND EKG AT 1200. ORDERS PLACED AT THIS TIME.
--- NOTE | 2020-04-02 08:19 | NUR ---
SHIFT ASSESSMENT COMPLETED AT THIS TIME. PATIENT HAS 22G TO THE LEFT AC- INFUSING NS AT 30 ML/HR WITHOUT S/S OF INFILTRATION NOTED. LEVOPHED 4MCG/MIN INFUSING TO A 22G TO THE LEFT FOREARM WITH NO S/S OF EXTRAVASATION NOTED; PATIENT IS TOLERATING ALL INFUSIONS WELL. 16F.ALCAZAR CATHETER NOTED TO BSC WITH APPORX. 50 ML OF CLOUDY URINE WITH SEDIMENT NOTED. PATIENT IS AOX 2 AND IS ABLE TO FOLLOW COMMANDS. PATIENT DENIES ANY PAIN AT THIS TIME AND NO ACUTE DISTRESS IS NOTED.
--- NOTE | 2020-04-02 09:27 | NUR ---
PATIENT TOOK HER COFFEE THIS MORNING WITH MINIMAL ASSISTANCE. PATIENT IS AOX1. PATIENT CURRENT B/P 115/49 WITH LOLIS 71 WITH LEVOPHED INFUSING AT 4MCG/MIN.
--- NOTE | 2020-04-02 10:22 | NUR ---
PATIENT IS RESTING QUIELTY IN BED. CURRENT BLOOD PRESSURE 107/62 WITH LOLIS OF 77.
--- NOTE | 2020-04-02 11:42 | NUR ---
CURRENT LEVOPHED DRIP INFUSING AT 4MCG/MIN TITRATED DOWN TO 2 MCG/MIN WITH CURRENT BLOOD PRESSURE READING 115/60 WITH LOLIS 78, HR 97. WILL MONITOR FOR TITRATION INCREASE OR DECREASE.
--- NOTE | 2020-04-02 12:30 | NUR ---
PATIENT ASSISTED WITH LUNCH BUT REFUSED DESPITE ENCOURAGING SMALL BITES. PATIENT DID HOWEVER DRINKED HER TEA AND WATER.
--- NOTE | 2020-04-02 12:53 | NUR ---
PATIENTS CURRENT BLOOD PRESSURE 118/66 WITH LOLIS OF 83. WILL CONTINUE TO MONITOR.
--- NOTE | 2020-04-02 13:30 | NUR ---
CURRENT LEVOPHED DRIP STOPPED AT THIS TIME WITH CURRENT BLOOD PRESSURE READING 122/58 WITH LOLIS 72.
--- NOTE | 2020-04-02 13:31 | NUR ---
PATIENTS HR NOTED AT 151 ON PATIENT CASE COORDINATOR. EKG DONE AT THIS TIME AND READING RESULT SUPRAVENTRICULAR TACHYCARDIA 154 WITH PATIENT BEING SYMPTOMATIC REPORTING FEELING NAUSEOUS AND DID VOMIT TWICE- WHITE FROTHY EMESIS. NOTIFIED ABOUT RESULTS AND NEW ORDERS PLACED IN THE EMAR FOR BOLUS AMIODORONE DRIP AND AMIODORONE CONTINUOUS INFUSION AFTER INITIAL BOLUS COMPLETE.
--- NOTE | 2020-04-02 14:16 | NUR ---
AMIODARONE 150 MG BOLUS GIVEN AT THIS TIME. LASIX 40 MG X1 SLOW IV PUSH. PATIENT TOLERATED WELL.
[2020-04-02 14:17] LABS: POTASSIUM 3.2 mmol/L (3.6-5.2)
--- NOTE | 2020-04-02 14:20 | NUR ---
IS HERE ROUNDING ON PATIENT.
--- NOTE | 2020-04-02 15:00 | NUR ---
CALLED AND SPOKE TO DAUGHTER JOSE GIBSON REGARDING CONSENT FOR PICC LINE PLACEMENT. DAUGHTER UPDATED ON PATIENTS CURRENT CONDITION AND NEED FOR PICC LINE FOR MEDICATIONS. PATIENT DAUGHTER GAVE CONSENT FOR VENANCIO. WITNESS JOSE COLE LPN.
--- NOTE | 2020-04-02 15:10 | NUR ---
MARILYN CRUZ EMERGENCY DEPARTMENT PHYSICIAN HERE AT THE BEDSIDE INSERTING PICC LINE USING STERILE TECHNIQUE. PATIENT IS TOLERATING WELL. NO ACUTE DISTRESS NOTED. HR 90-95.
--- NOTE | 2020-04-02 15:47 | NUR ---
ORDER PLACED FOR A STAT CHEST X-RAY READING FOR PICC LINE PLACEMENT VERIFICATION.
--- NOTE | 2020-04-02 16:03 | NUR ---
RADIOLOGY HERE DOING CHEST X-RAY FOR PICC LINE PLACEMENT VERIFICATION.
--- NOTE | 2020-04-02 16:42 | NUR ---
CHEST X-RAY READ AND PICC LINE IN PLACE FOR USE. AMIODARONE DRIP STARTED AT 33.3 ML/HR. NS AT 30 ML/HR. LEVOPHED 6 MCG/MIN. TO THE LEFT UPPER ARM.
--- NOTE | 2020-04-02 17:20 | NUR ---
PATIENT IS RESTING QUIETLY WITH EYES CLOSED. PATIENT CURRENT BLOOD PRESSURE 120/67 WITH LOLIS 84, HR 89, RR-18, SPO2 98% AT 2 LPM.
--- NOTE | 2020-04-02 18:25 | NUR ---
IS HERE ROUNDING ON PATIENT. PATIENT IS AWAKE RESTING QUIETLY WITH EYES OPEN. AMIODARONE 33.3 ML/HR AND LEVOPHED 6MCG/MIN.
--- NOTE | 2020-04-02 23:09 | NUR ---
RESTING IN BED WITH NO S/S OF PAIN OR DISTRESS NOTED, RESP RATE 16 NONLABORED, FOLEYL PATENT, PICC INTACT, VITALS BEING MONITORED, HELPER METAL HANGING IN USE WITH RATE OF 84, FEET AND HANDS ELEVATED ON PILLOWS, WILL MONITOR, RAILS UP, BED IN LOW POSITION.
[2020-04-03] VITALS (91 sets, daily range): BP systolic 15–154; BP diastolic 53–83; TEMP 97.2–98.5
--- NOTE | 2020-04-03 00:35 | NUR ---
PATIENT RESPOSITIONED TO RIGHT SIDE, BUE PLACED ON PILLOWS AND BLE FLOATING ON PILLOW. NAD NOTED WITH PATIENT AT THIS TIME.
--- NOTE | 2020-04-03 01:00 | NUR ---
DECREASED LEVOPHED TO 4MCG/MIN, WILL MONITOR B/P AND PULSE CLOSELY, VITALS ARE STABLE AT THIS TIME.
--- NOTE | 2020-04-03 03:15 | NUR ---
PATIENT IN SEMI FOWLERS POSITION WITH BUE ON PILLOWS FOR SUPPORT AND BLE FLOATING ON PILLOW. PICC LINE DSG TO LEFT UPPER ARM, DRY AND INTACT, LEVOPHED INFUSING AT 15ML/HR AND NS @ 100 ML/HR TO THE RED PORT AND AMIODARONE @ 30MG/HR INFUSING TO PURPLE PORT WITHOUT DIFFICULTY. ORAL CARE PROVIDED TO PATIENT AND CLEAN GOWN PLACED ON PATIENT. DEPENDS DRY AND INTACT AND PERICARE PROVIDED TO PATIENT. PATIENT TOLERATED WELL. NO S/SX OF DISTRESS NOTED WITH PATIENT AT THIS TIME.
[2020-04-03 05:02] LABS: POTASSIUM 3.2 mmol/L (3.6-5.2)
[2020-04-03 05:23] LABS: PLATELET COUNT 39 K/uL (152-353)
--- NOTE | 2020-04-03 06:00 | NUR ---
OBTAINED PATIENT'S DAILY WEIGHT THIS AM WITH 3 PILLOWS ON BED
--- NOTE | 2020-04-03 06:05 | NUR ---
RESTING WITH EYES CLOSED, NO DISTRESS NOTED, WILL MONITOR CLOSELY, RAILS UP, BED IN LOW POSITION.
--- NOTE | 2020-04-03 08:04 | NUR ---
PATIENTS DAUGHTER CALLED JOSE GIBSON TO CHECK ON HER MOTHER. DAUGHTER GIVEN UPDDATE REGARDING PATIENTS CURRENT STATUS.
--- NOTE | 2020-04-03 08:44 | NUR ---
SHIFT ASSESSMENT COMPLETED. PATIENT IS RESTING QUIETLY WITH EYES CLOSED. CURRENT AMIODARONE INFUSING AT 16.6 ML/HR TO THE LEFT UPPER ARM PICC LINE. LEVOPHED STOPPED AT 0748 WITH PATIENTS CURRENT BLOOD PRESSURE 125/68 WITH LOLIS 87, HR 84, R20. NO ACUTE DISTRESS NOTED. WILL CONTINUE TO MONITOR.
--- NOTE | 2020-04-03 09:00 | NUR ---
PATIENT ENCOURAGED TO EAT BREAKFAST BUT CLOSES HER MOUTH AND STATES " I DONT WANT ANY"
--- NOTE | 2020-04-03 09:21 | NUR ---
HERE ROUNDING ON PATIENT.
--- NOTE | 2020-04-03 10:49 | NUR ---
PATIENT IS RESTING COMFORTABLY WITH EYES CLOSED. CURRENT 132/68, HR 85.
--- NOTE | 2020-04-03 11:45 | NUR ---
PATIENT GIVEN A BED BATH. WHEN CLEANING PATIENT AND REPOSITIONING ON HER BACK SHE HAD A SMALL BROWN BM. PATIENT CLEANED AND CALAMIZE APPLIED TO HER BOTTOM. PATIENT REPOSITIONED ON HER LEFT SIDE WILL PILLOWS ON HER BACK FOR SUPPORT.
--- NOTE | 2020-04-03 12:28 | NUR ---
PATIENT OFFERED FOOD BUT KEEPS CLOSING HER MOUTH AND STATES " NO". SMALL SPOON OF RICE PLACED IN PATIENTS MOUTH AND SHE SPIT FOOD OUT. PATIENT CLEANED AND OFFERED SMALL SIPS OF WATER.
--- NOTE | 2020-04-03 13:19 | NUR ---
PATIENT COUGHED UP SOME WHITE FROTHY SPUTUM WITH GREEN TINGED MUCOUS. PATIENT SUCTIONED AT THIS TIME AND PROVIDED ORAL CARE.
--- NOTE | 2020-04-03 14:10 | NUR ---
PATIENT COUGHING UP WHITE FROTHY SPUTUM WITH GREEN TINGED MUCOUS NOTED. PATIENT SUCTIONED WITH PATIENT GETTING AGITATED WHEN SHE IS SUCTIONED. PATIENT GIVEN ORAL CARE.
--- NOTE | 2020-04-03 15:22 | NUR ---
PATIENTS TOES TO BILATERAL EXTREMITIES NOTED LIGHT PURPLE AND COLD TO TOUCH. PATIENTS PEDAL PULSES CHECKED BILATERALLY WITH DOPPLER AND PEDAL PULSES ARE PRESENT STRONG. BLE ELEVATED ON PILLOWS.
--- NOTE | 2020-04-03 16:58 | NUR ---
PATIENT SUCTIONED NOTED SPITTING UP WHITE FOAMY SPUTUM WITH LIGHT GREEN TINGED STREAKS. PATIENT ALSO ATTEMPTING TO PULL OFF NC BUT REDIRECTED.
--- NOTE | 2020-04-03 20:05 | NUR ---
PATIENT SUCTIONED, MODERATE AMOUNT OF WHITE FROTHY SPUTUM REMOVED. PATIENT TOLERATED WELL.
--- NOTE | 2020-04-03 21:15 | NUR ---
PATIENT SPITTING WHITE FROTHY SPUTUM FROM MOUTH. ASSISTED PATIENT WITH REMOVAL OF SAME BY SUCTIONING PATIENT.
--- NOTE | 2020-04-03 21:55 | NUR ---
PATIENT ATTEMPTING TO SPIT WHITE FROTHY SPUTUM FROM MOUTH, PATIENT SUCTIONED AND REMOVED SAME.
--- NOTE | 2020-04-03 23:00 | NUR ---
PATIENT MOANING, MORPHINE 2MG GIVEN VIA SIVP PER PHYSICIAN ORDERS FOR GENERALIZED PAIN.
--- NOTE | 2020-04-03 23:15 | NUR ---
PATIENT REPOSITIONED ONTO RIGHT SIDE WITH PILLOW BEHIND TORSO FOR SUPPORT AND PILLOW UNDER EACH BUE. HEELS CONTINUE TO FLOAT ON A PILLOW.
[2020-04-04] VITALS (75 sets, daily range): BP systolic 79–118; BP diastolic 35–72; TEMP 97.3–98.6
--- NOTE | 2020-04-04 01:17 | NUR ---
PT RESTING. HR IS 90. AMINODORONE INFUSING ORDER. BP 105/56. O2 SAT IS 91.
--- NOTE | 2020-04-04 02:00 | NUR ---
PATIENT REPOSITIONED TO LEFT SIDE AND TORSO SUPPORTED WITH PILLOW AND BUE PLACED ON PILLOWS.
--- NOTE | 2020-04-04 03:56 | NUR ---
PT WITH DECREASING 02 SATS ARE 84 TO 09 PERCENT. NONREBREATHER PLACED ON PT. O2 SATS INCREASED TO 97 98 PERCENT.
--- NOTE | 2020-04-04 04:12 | NUR ---
REPOSITIONED PATIENT ONTO LEFT SIDE. PATIENT CONTINUES TO RECEIVE OXYGEN VIA NON-REBREATHER. PATIENT TOLERATING WELL.
--- NOTE | 2020-04-04 05:15 | NUR ---
LE 0300 PT'S SATS ARE DROPPING 84 TO 90 PERCENT. PT WAS CHANGED TO NRB MASK. MEDICATED WITH MORPHINE SULFATE 2 MG IVSP.
[2020-04-04 05:42] LABS: PLATELET COUNT 30 K/uL (152-353)
[2020-04-04 05:59] LABS: POTASSIUM 3.7 mmol/L (3.6-5.2)
--- NOTE | 2020-04-04 06:21 | NUR ---
PT WAS REPOSITIONED IN BED. LOWER EXT WERE ELEVATED. PT WITH GRUNTING VERBAL SOUNDS. PT USING ABDOMINAL MUSCLES FOR BREATHING.
--- NOTE | 2020-04-04 07:09 | NUR ---
SPOKE WITH DAUGHTER JOSE GIBSON REGARDING MOTHERS CONDITION AND AFTER TALKING TO HER REGARDING HER MOTHERS WISHES SHE STATED " MY MOTHER DID NOT WANT TO BE RESUCITATED", NOTIFIED .
--- NOTE | 2020-04-04 07:35 | NUR ---
ABG DONE AT THE BEDSIDE. PATIENT GIVEN A BED BATH BY YURIDIA NEFF LPN AND KELLEY OWENS RN
--- NOTE | 2020-04-04 08:50 | NUR ---
PATIENT'S NASAL PASSAGE SWABBED FOR COVID AND PROVIDED SAMPLE TO LAB.
--- NOTE | 2020-04-04 08:56 | NUR ---
PATIENT GIVEN SODIUM BICARB 50 MEQ BOLUS VIA ABBOJECT THROUGH THE PICC LINE W/O DIFFICULTY. SODIUM BICARB 100 MEQ MIXED WITH D5W 1000 MG AND SPIKED AT THIS TIME AND STARTED INFUSING AT 100 ML/HR.
--- NOTE | 2020-04-04 09:10 | NUR ---
PATIENTS DAUGHTER AND SON CAME AND VISITED PATIENT FOR 5 MINUTES EACH AND DAUGHTER JSOE GIBSON SIGNED DNR CONSENT AT THIS TIME.
--- NOTE | 2020-04-04 09:56 | NUR ---
PATIENT REMAINS ON NON REBREATHER WITH CURRENT SPO2 SATS 96%, BLOOD PRESSURE 102/60.
--- NOTE | 2020-04-04 10:21 | NUR ---
HERE SIGNING DNR PER DAUGHTER JOSE GIBSON. DNR CONSENT PLACED IN CHART.
--- NOTE | 2020-04-04 11:19 | NUR ---
PATIENT IS RESTING WITH EYES CLOSED. GRUNTING NOTED ON EXPIRATION. WILL NOTIFY DR. ELLIOTT.
--- NOTE | 2020-04-04 12:09 | NUR ---
PATIENT REPOSITIONED ON TO HER RIGHT SIDE AND PLACED IN LOW FOWLERS POSITION. PATIENT STILL IS LETHARGIC AND WILL MINMALLY OPEN HER EYES WHEN CALLING HER NAME. PATIENT PLACED IN SEMIFOWLERS POSITION.
--- NOTE | 2020-04-04 13:39 | NUR ---
PATIENT NOTED GRUNTING AND SHE WAS NOTED GRIMACING AFTER REPOSITIONING HER. NOTIFIED AND NEW ORDER WAS PLACED FOR MORPHINE. MORPHINE 2 MG GIVEN SLOW IV PUSH. WILL REASSESS FOR DECREASE IN PAIN AND DISCOMFORT.
--- NOTE | 2020-04-04 14:49 | NUR ---
PATIENT POST MORPHINE IS RESTING QUIETLY WITH A DECREASE IN GRUNTING NOTED. WILL CONTINUE TO MONITOR.
--- NOTE | 2020-04-04 15:13 | NUR ---
SON HERE TO SEE PATIENT AND IS AT THE BEDSIDE. PROVIDED EMOTINAL SUPPORT.
--- NOTE | 2020-04-04 16:20 | NUR ---
LIZZIE PATIENTS SON AND HERE AT THE BEDSIDE DOWN FROM ANTHON.
--- NOTE | 2020-04-04 17:35 | NUR ---
PATIENT DEEP SUCTIIONED WITH YANKEUR AND NOTED LARGE AMOUNT OF THICK BROWN SPUTUM NOTED.
--- NOTE | 2020-04-04 19:43 | NUR ---
PM ASSESSMENT WAS COMPLETED. PT IS A 84 YEAR OLD FEMALE ADMITTED 04/01/20 FROM THE [facility]. PT WAS ADMITTED WITH SEPSIS. TODAY PT'S FAMILY DECIDED AND AGREED TO MAKE PT A DNR. PT'S VITAL SIGNS ARE WNL. HR IS 100 BPM. ALCAZAR CATHERTAR INTACT AND DRAINING YELLOW URINE. PT IS WEARING AND USING NRB.
--- NOTE | 2020-04-04 20:45 | NUR ---
PT'S BP IS 91/40.
--- NOTE | 2020-04-04 23:30 | NUR ---
PT WAS MEDICATED WITH MORPHINE SULFATE 2MG IVSP GIVEN FOR PULMONARY EDEMA/DANA/ CONGESTIONS.
--- NOTE | 2020-04-04 23:36 | NUR ---
PT WAS SUCTIONED ORALLY. THICK WHITE SECRETIONS COLLECTED. PT'S LIPS AND ORAL CAVITY WAS MOISTENED. PT WITH AUDIBLE CRACKES/RALES.
[2020-04-05] VITALS: BP 93/72
[2020-04-05 01:00] VITALS: BP 75/42
--- NOTE | 2020-04-05 01:58 | NUR ---
PT CONTINUES TO RESTS QUIETLY. O2 SAT IS 89.
[2020-04-05 02:00] VITALS: BP 74/35
--- NOTE | 2020-04-05 02:42 | NUR ---
BP IS 56/36.
[2020-04-05 03:00] VITALS: BP 60/36
--- NOTE | 2020-04-05 04:00 | NUR ---
HEART RATE IS 55 AND BLOOD PRESURE DECREASING. O2 SATS DROPPING. 04:05AM PT WITH ASYSTOLE. NO PULSE, NO RESPIRATIONS, NO BP, 0 O2 SAT. PUPILS CHECKED PINPOINT AND NONREACTIVE. 0410AM JOI HERE AND PRONOUNCED PT . PROGRESS NOTED DOCUMENTED PER . 0420PM CALLED [facility]. PT HAS SIGNED DONOR CARD PREVIOUSLY. PT IS NOT A CANIDATE RELATED TO HER SEPSIS.
--- NOTE | 2020-04-05 04:05 | NUR ---
PT WITH HR DECLINING. BREATHING IS SHALLOW AND RATE DECLINING.
--- NOTE | 2020-04-05 04:36 | NUR ---
CALLED PATIENT FAMILY AND SPOKE WITH JOSE ARTHUR. PT'S DAUGHTER. MS. GIBSON STATED THAT SHE HAS TO TALK WITH OTHER FAMILY MEMBERS TO DISCUSS WHO WOULD BE IN CHARGE OF TRANSFERRING PT TO DECIDED SERVICES. ALSO STATED THAT PT WANTED TO BE CREMATED. AWAITING CALL AND INSTRUCTIONS FROM MS. GIBSON. INSTRUCTED MS. GIBSON THAT WE WOULD POSSIBLY HAVE TO PLACE HER IN [facility]. PT STATED THAT SHE DID NOT WANT TO SEE HER MOTHER AT THIS TIME.
--- NOTE | 2020-04-05 06:44 | NUR ---
MS. HERRINGIE ARTHUR CALLED AND STATED THAT FAMILY DECIDED TO HAVE [facility]ES [facility] . INSTRUCTED [place] STAFF RONNIE THAT PT HAS . INSTRUCTED ARTHUR TO CONTACT ANGELITA SANTOYO ABOUT PT'S BELONGINGS. Rene ARTHUR VOICED UNDERSTANDING.
--- NOTE | 2020-04-05 08:30 | NUR ---
0745 BODY RELEASED TO [facility]. FAMILY AWARE
== END 2020-04-05 07:45 | disposition expired | DRG 871 ==
LOC: ED 01:26 → MED/SURG 06:24 → ICU 17:10
PROVIDERS: Emergency Medicine; ADMIT Internal Medicine Endocrinology, Diabetes & Metabolism; ATTEND Internal Medicine Endocrinology, Diabetes & Metabolism
PROC: 05H633Z Insertion of Infusion Device into Left Subclavian Vein, Percutaneous Approach (ICD-10-PCS; principal; 2020-04-02)
PROC: B547ZZA Ultrasonography of Left Subclavian Vein, Guidance (ICD-10-PCS; 2020-04-02)
DX: A41.89 Other specified sepsis (principal); E43 Unspecified severe protein-calorie malnutrition; N30.00 Acute cystitis without hematuria; E87.2 Acidosis; N17.8 Other acute kidney failure; I95.89 Other hypotension; E11.22 Type 2 diabetes mellitus with diabetic chronic kidney disease; I12.9 Hypertensive chronic kidney disease with stage 1 through stage 4 chronic kidney disease, or unspecified chronic kidney disease; N18.30 Chronic kidney disease, stage 3 unspecified; E11.40 Type 2 diabetes mellitus with diabetic neuropathy, unspecified; G30.8 Other Alzheimer's disease; F02.80 Dementia in other diseases classified elsewhere, unspecified severity, without behavioral disturbance, psychotic disturbance, mood disturbance, and anxiety; K21.9 Gastro-esophageal reflux disease without esophagitis; Z68.27 Body mass index [BMI] 27.0-27.9, adult; E83.51 Hypocalcemia; E87.6 Hypokalemia; B96.4 Proteus (mirabilis) (morganii) as the cause of diseases classified elsewhere
CPT/HCPCS: 36415; 36591; 36600; 51702; 80053; 80202; 81000; 82550; 82805; 83605; 83735; 83880; 84484; 85007; 85008; 85027; 85610; 85730; 87040; 87070; 87077; 87086; 87088; 87186; 87205; 87502; 87635; 93005; 94760; 96360; 96361; 96365; 96366; 99284; J0132; J0282; J0610; J0696; J1650; J1720; J1815; J1940; J1956; J2185; J2270; J2405; J3370; J3475; J3490; P9047; U0003